=== PATIENT | female | born 1955 | race Two or more races ===

== ENCOUNTER 2016-08-26 05:09 | Emergency (ER) | payer OTHER, MEDICAID ==
[~2016-08-26] VITALS: Ht 154.9 cm; Wt 49.9 kg
[2016-08-26 05:20] VITALS: BP 128/48
[2016-08-26] MEDS ORDERED: UNOBMED (06:00)
[2016-08-26 06:29] LABS: BASOPHILS % (AUTO) 0.8 % (0.0-2.0); EOSINOPHILS % (AUTO) 1.1 % (0.0-3.0); LYMPHOCYTES % (AUTO) 22.1 % (20.0-45.0); MEAN CORPUSCULAR HEMOGLOBIN 27.6 PG (27.0-31.0); MEAN CORPUSCULAR HGB CONC 31.9 G/DL (32.0-36.0); MEAN CORPUSCULAR VOLUME 86 FL (80-99); MEAN PLATELET VOLUME 5.7 FL (6.5-10.1); MONOCYTES % (AUTO) 7.8 % (1.0-10.0); NEUTROPHILS % (AUTO) 68.2 % (45.0-75.0); PLATELET COUNT 290 K/UL (150-450); RED BLOOD COUNT 4.76 M/UL (4.20-5.40); RED CELL DISTRIBUTION WIDTH 12.6 % (11.6-14.8); WHITE BLOOD COUNT 8.4 K/UL (4.8-10.8)
[2016-08-26] MEDS ORDERED: Ketorolac 30mg Inj IV ONE (06:30)
[2016-08-26 06:44] LABS: ALANINE AMINOTRANSFERASE 13 U/L (3-33); ALBUMIN/GLOBULIN RATIO 0.9 (1.0-2.7); ANION GAP 11 (5-15); ASPARTATE AMINO TRANSFERASE 17 U/L (5-40); CARBON DIOXIDE 27 mEQ/L (20-30); CHLORIDE 100 mEQ/L (98-107); CREATININE 0.6 mg/dL (0.5-0.9); GLOMERULAR FILTRATION RATE > 60 mL/min (>60); HEMOLYSIS 3; POTASSIUM 4.4 mEQ/L (3.4-4.9); SODIUM 138 mEQ/L (135-145); TOTAL PROTEIN 7.4 g/dL (6.6-8.7)
--- NOTE | 2016-08-26 06:50 | Emergency Room Report ---
History of Present Illness General Chief Complaint: Back Pain-No Injury Source: Patient Present Illness HPI 61 YO F presents with acute on chronic right lower back pain. Denies precipitating injury. Denies lower extremity weakness, urinary complaints, fever /chills. Is on Pradaxa for known right lower extremity DVT. Denies any acute change in pain, swelling to right lower extremity. Taking Ibuprofen at home for pain. Pain worse with lying down. Endorses history of sciatica. Allergies: Uncoded Allergies: CODEINE (Allergy, Unknown, 08/26/16) MORPHINE (Allergy, Unknown, 08/26/16) Patient History Past Medical History: other - Sciatica, DVT Past Surgical History: none Pertinent Family History: none Social History: Denies: alcohol use, drug use, smoking Now: No Immunizations: UTD Reviewed Nursing Documentation: PMH: Agreed, PSxH: Agreed Nursing Documentation-PMH Past Medical History: No History, Except For History Of Psychiatric Problem: Yes - depression Review of Systems All Other Systems: negative except mentioned in HPI Physical Exam Vital Signs Date Time Temp Pulse Resp B/P Pulse Ox O2 Delivery O2 Flow Rate FiO2 08/26/16 05:11 98.4 60 16 112/62 100 Room Air Sp02 EP Interpretation: reviewed, normal General Appearance: normal inspection, well appearing, no apparent distress, alert Head: normocephalic, atraumatic Eyes: bilateral eye EOMI, bilateral eye PERRL ENT: normal ENT inspection, hearing grossly normal, normal voice Neck: normal inspection, full range of motion, supple, no bony tend Respiratory: normal inspection, lungs clear, normal breath sounds, no respiratory distress, no retraction, no wheezing Cardiovascular #1: regular rate, rhythm, no edema Gastrointestinal: normal inspection, normal bowel sounds, non tender, soft, no guarding, no hernia Genitourinary: no CVA tenderness Musculoskeletal: normal inspection, back normal, normal range of motion, no calf tenderness, pelvis stable, Latrice's Sign negative, other - negative straight leg raise test bilaterall. No ttp to right lower extremity Neurologic: normal inspection, alert, oriented x3, responsive, tax adjuster III-XII nml as tested, motor strength/tone normal, speech normal Psychiatric: normal inspection, judgement/insight normal, mood/affect normal Skin: normal inspection, normal color, no rash Lymphatic: normal inspection Medical Decision Making Diagnostic Impression: Primary Impression: Chronic low back pain with right-sided sciatica Qualified Codes: M54.41 - Lumbago with sciatica, right side; G89.29 - Other chronic pain ER Course acute on chronic right lower back pain. VSS. Afebrile. DDx includes pyelo, cystitis, MSK pain, sciatica PLAN LS xray, labs, Toradol IV, reassess Other X-Ray Diagnostic Results Other X-Ray Diagnostic Results : X-Ray Ordered: LS xray EP Interpretation: Yes Findings: no fractures, no dislocation, no soft tissue swelling Number of Views: 3 Reevaluation Time: 06:49 Last Vital Signs Date Time Temp Pulse Resp B/P Pulse Ox O2 Delivery O2 Flow Rate FiO2 08/26/16 05:20 98.4 70 16 128/48 99 Room Air Status: improved Reevaluation Impression labs: No leuks. H&H stable. Patient hasnt given urine LS Spine: no acute fx or mass on ED review IV toradol improved symptom A: likely MSK pain, acute on chronic sciatica pain DC robaxin with ibuprofen PMD followup DC home Disposition: HOME, SELF-CARE REMA MCCARTY M.D. Aug 26, 2016 06:50
[2016-08-26] MEDS ORDERED: ROBAXIN-750750 MG PO (06:51)
[2016-08-26 08:54] VITALS: BP 125/80
[2016-08-26 09:09] VITALS: BP 125/80
--- NOTE | 2016-08-30 10:32 | Cardiology Report ---
APPROVED REPORT EKG Measurement Heart [id number] Normal sinus rhythm Normal ECG
--- NOTE | 2016-08-30 10:32 | Diagnostic Imaging Report ---
Indication: PAIN Technique: 3 views of the lumbar spine Comparison: None Findings:There is mild lumbar levoscoliotic deformity, possibly artifact of positioning. The remainder the bony alignment is normal. There is mild superior endplate compression fracture of the T12 vertebral body. The remaining vertebral body heights are preserved. Disc spaces are preserved. The pedicles are intact. Sacral arches are preserved. Sacroiliac joint spaces are preserved. The bones are demineralized. The surrounding soft tissues are unremarkable Impression: Superior endplate fracture of the T12 vertebral body, age indeterminate. Correlate with clinical findings, consider MRI further evaluation clinically indicated Equivocal mild scoliotic deformity Osteoporotic change
== END 2016-08-26 09:12 | disposition home or self-care (01) ==
LOC: EDBD 05:09 → EMR 06:05
DX: M54.41 Lumbago with sciatica, right side (principal); G89.29 Other chronic pain
CPT/HCPCS: 36415; 72020; 80053; 85025; 93005; 96374; 99284; J1885